=== PATIENT | female | born 1980 | race Caucasian/White ===

== ENCOUNTER 2020-04-16 08:22 | Outpatient (CLI) | payer MEDICAID, SELFPAY ==
--- NOTE | 2020-04-16 08:38 | MR_ITS ---
WS: [id number] MRI CERVICAL SPINE NONCONTRAST TECHNIQUE: Sagittal T1, T2 and STIR imaging. Axial T2, gradient, and fiesta imaging. CLINICAL INFORMATION: CERVICALGIA COMPARISON: MRI 5 FINDINGS: Straightening of the normal cervical lordosis. Cord signal is normal. No significant central canal st enosis. Normal bone marrow signal. C2-C3: Normal. C3-C4: Normal. C4-C5: No significant disc bulging. Spinal canal and foramen are patent. C5-C6: Mild osteophytic ridging. Mild right and no significant left bony foraminal narrowing. Mild fa cet arthropathy. C6-C7: Disc osteophytic ridging with a tiny central protrusion. Mild right and no significant left fo raminal narrowing. Mild central canal stenosis. Mild facet arthropathy. C7-T1: No significant disc bulging. Mild right and no significant left foraminal narrowing. Spinal ca nal is patent. Normal.Visualized brain stem structures: Normal. Prevertebral soft tissues: Normal. MR/MR cervical spin wo con* [id number] IMPRESSION: 1. Straightening of the normal cervical lordosis. Cord signal is normal. No si gnificant central canal narrowing. 2. Mild right C5-C6 bony foraminal narrowing with mild facet arthropathy. 3. Tiny central disc osteophyte protrusion C6-C7 with mild central canal steno sis. Mild right foraminal narrowing.
--- NOTE | 2020-04-16 08:39 | XR_ITS ---
WS: [id number] Lateral views of cervical spine in the flexion, extension and neutral positions. 04/16/2020 Clinical Data: SPONDYLOLISTHESIS Comparison: Cervical spine, 02/20/2020. Findings: There is minimal calcification of the anterior longitudinal ligament at C5-C6. No prevertebral soft t issue swelling is present. On flexion and extension there is no limitation of motion or subluxation. XR/XR cervical spine fl/ex [id number] Impression: Negative for limitation of motion or subluxation on flexion or extension.
== END 2020-04-16 08:23 | disposition home or self-care (01) ==
LOC: RADWPI 08:26
PROVIDERS: PCP Nurse Practitioner Family; Visit Provider Anesthesiology Pain Medicine
DX: M43.12 Spondylolisthesis, cervical region (principal); M25.78 Osteophyte, vertebrae; M48.02 Spinal stenosis, cervical region; M47.812 Spondylosis without myelopathy or radiculopathy, cervical region
CPT/HCPCS: 72040; 72141

== ENCOUNTER 2020-10-17 10:28 | Outpatient (CLI) | payer MEDICAID, SELFPAY ==
--- NOTE | 2020-10-17 10:35 | MM_ITS ---
WS: [id number] BILATERAL SCREENING DIGITAL MAMMOGRAM WITH CAD HISTORY: SCREENING COMPARISON: None available. Bilateral CC and MLO views submitted. Computer aided detection analyzed. Breast composition: There are scattered areas of fibroglandular density. No suspicious masses, microc alcifications or architectural distortion. MM/[place] [id number] IMPRESSION: BI-RADS: 1-Negative FOLLOW UP: 1 Year Follow-up
== END 2020-10-17 10:29 | disposition home or self-care (01) ==
LOC: RADSHAW 10:32
PROVIDERS: PCP Nurse Practitioner Family; Visit Provider Nurse Practitioner Family
DX: Z12.31 Encounter for screening mammogram for malignant neoplasm of breast (principal)
CPT/HCPCS: 77067

== ENCOUNTER 2022-07-20 11:52 | Outpatient (CLI) | payer MEDICAID, SELFPAY ==
--- NOTE | 2022-07-20 12:15 | MR_ITS ---
WS: [id number] MRI CERVICAL SPINE NONCONTRAST TECHNIQUE: Sagittal T1, T2 and STIR imaging. Axial T2, gradient, and fiesta imaging. CLINICAL INFORMATION: CERVICAL SPINAL STENOSIS COMPARISON: MRI April 16, 2020 FINDINGS: Straightening of the normal cervical lordosis. Cord signal is normal. No high-grade central canal darrin nosis. C2-C3: Normal. C3-C4: Mild facet arthropathy. Mild LEFT and no significant RIGHT foraminal narrowing. Spinal canal i s patent. C4-C5: No significant disc bulging. Mild facet arthropathy. Spinal canal and foramen are patent. C5-C6: Mild disc osteophytic ridging. Mild facet arthropathy. Mild RIGHT and no significant LEFT fora laci narrowing. C6-C7: Tiny shallow central disc protrusion. Slight contact of the cervical cord. Mild central canal stenosis. Mild RIGHT and no significant LEFT foraminal narrowing. C7-T1: LEFT eccentric disc osteophyte complex encroaches on and slightly contacts exiting LEFT C8 ner ve root. Recommend correlation LEFT C8 nerve root symptoms. RIGHT foramen is patent. Spinal canal is patent. Visualized brain stem structures: Normal. Prevertebral soft tissues: Normal. MR/MR cervical spin wo con* [id number] IMPRESSION: 1. Straightening of the normal cervical lordosis. Cord signal is normal. 2. Tiny shallow central disc protrusion C6-C7 with slight contact of the cervi [place] cord and mild central canal stenosis appears slightly more prominent compar ed to previous but not significantly changed. Mild RIGHT foraminal narrowing at this level. 3. Progressed LEFT eccentric disc osteophyte complex C7-T1 with slight contact of the exiting LEFT C8 nerve root. Recommend correlation LEFT C8 nerve root sy mptoms. 4. Mild LEFT C3-C4 and RIGHT C5-C6 bony foraminal narrowing. 5. Mild facet arthropathy C3-C4, C4-C5, C5-C6, and C6-C7.
== END 2022-07-20 11:53 | disposition home or self-care (01) ==
PROVIDERS: PCP Nurse Practitioner Family; Visit Provider Nurse Practitioner Family
DX: M48.02 Spinal stenosis, cervical region (principal); M47.812 Spondylosis without myelopathy or radiculopathy, cervical region; M25.78 Osteophyte, vertebrae; M50.223 Other cervical disc displacement at C6-C7 level
CPT/HCPCS: 72141